=== PATIENT | female | born 1980 | race Two or more races ===

== ENCOUNTER 2024-11-29 15:42 | Emergency (ER) | payer BC ==
[~2024-11-29] VITALS: Ht 165.1 cm; Wt 63.5 kg
[2024-11-29 17:29] VITALS: BP 116/76; O2SAT 98
[2024-11-29] MEDS ORDERED: ARMOUR THYROID15 MG (17:31)
[2024-11-29] MEDS ORDERED: ORPHENADRINE CITRATE 30 MG/ML AMPUL ONE (17:40)
[2024-11-29] MEDS ORDERED: ORPHENADRINE CITRATE 30 MG/ML AMPUL IM ONE (17:45)
[2024-11-29] MEDS ORDERED: NORFLEX100MG PO (18:22)
[2024-11-29] MEDS ORDERED: DICLOFENAC SODI75 MG PO (18:22)
== END 2024-11-29 18:28 | disposition home or self-care (01) ==
LOC: ER 16:36
DX: M54.89 Other dorsalgia (principal); M54.2 Cervicalgia; M51.369 Other intervertebral disc degeneration, lumbar region without mention of lumbar back pain or lower extremity pain